=== PATIENT | male | born 1950 | race Caucasian/White ===

== ENCOUNTER 2019-12-30 12:42 | Emergency (ER) | payer MEDICARE, OTHER ==
[~2019-12-30] VITALS: Ht 175.3 cm; Wt 65.0 kg
[2019-12-30] MEDS ORDERED: HYDROcodone/APAP 5/325 TABLET PO ONE (13:00)
[2019-12-30] MEDS ORDERED: ONDANSETRON ODT 4 MG PO ONE (13:00)
[2019-12-30] MEDS ORDERED: KETOROLAC 30 MG/1 ML IM ONE (13:00)
[2019-12-30] MEDS ORDERED: CYCLOBENZAPRINE 10 MG TABLET PO ONE (13:00)
[2019-12-30] MEDS ORDERED: KETOROLAC 30 MG/1 ML ONE (13:05)
[2019-12-30] MEDS ORDERED: CYCLOBENZAPRINE 10 MG TABLET ONE (13:05)
[2019-12-30] MEDS ORDERED: ONDANSETRON ODT 4 MG ONE (13:05)
[2019-12-30] MEDS ORDERED: HYDROcodone/APAP 5/325 TABLET ONE (13:05)
--- NOTE | 2019-12-30 13:11 | NUR ---
PT MEDICATED PER MAR
[2019-12-30 14:19] VITALS: BP 171/87
== END 2019-12-30 14:43 | disposition home or self-care (01) ==
LOC: ED 13:39
DX: S39.012A Strain of muscle, fascia and tendon of lower back, initial encounter (principal); E78.5 Hyperlipidemia, unspecified; I10 Essential (primary) hypertension; X58.XXXA Exposure to other specified factors, initial encounter; Y93.89 Activity, other specified; Y92.89 Other specified places as the place of occurrence of the external cause; Y99.8 Other external cause status
CPT/HCPCS: 72110; 96372; 99283; J1885